=== PATIENT | male | born 1975 | race Caucasian/White ===

== ENCOUNTER 2016-08-13 17:44 | Inpatient (IN) ==
[2016-08-13 18:43] LABS: BASO% 0.1 % (0.0-0.8); EOS# 0.02 X1000 (0.0-0.7); EOS% 0.1 % (0.0-10.0); HEMATOCRIT 42.7 % (42.0-52.0); HEMOGLOBIN 16.1 g/dL (14.0-18.0); IMM GRAN# 0.02 X1000 (0.0-0.04); IMM GRAN% 0.1 % (0.0-0.5); LYMPH# 1.91 X1000 (1.2-3.4); MANUAL DIFF NEEDED? YES; MCH 32.1 PG (27-31); MCHC 37.7 g/dL (33-37); MCV 85.1 FL (81-99); MONO# 0.84 X1000 (0.11-0.59); MONO% 6.2 % (1.7-9.3); MPV 12.1 FL (7.4-10.4); NEUT% 79.5 % (42.2-75.2); PLT 68 X1000 (130-400); RBC 5.02 XMIL (4.7-6.1)
[2016-08-13 18:48] LABS: AGAP 17; ALBUMIN 4.1 g/dL (3.5-5.0); ALKALINE PHOSPHATASE 65 U/L (32-122); AMYLASE 162 U/L (20-200); BUN 36 mg/dL (8-22); CALCIUM 9.2 mg/dL (8.8-10.2); CHLORIDE 81 mmol/L (98-107); COSMO 261; GOT 34 U/L (10-34); GPT 51 U/L (10-44); LIPASE 205 U/L (13-60); POTASSIUM 3.6 mmol/L (3.5-5.1); SODIUM 125 mmol/L (136-145); TCO2 27 mmol/L (25-35); TOTAL BILIRUBIN 1.19 mg/dL (0.20-1.00); TOTAL PROTEIN 7.4 g/dL (6.3-8.3)
[2016-08-13 18:49] LABS: URINE CULTURE NEEDED? NO; URINE MICRO REVIEW NEEDED? NO; URINE SOURCE CLEAN CATCH
[2016-08-13 18:53] LABS: BILIRUBIN URINE SMALL (NEGATIVE); BLOOD URINE TRACE (NEGATIVE); COLOR ORANGE; GLUCOSE URINE NEGATIVE (NEGATIVE); LEUKOCYTES URINE NEGATIVE (NEGATIVE); NITRITE URINE NEGATIVE (NEGATIVE); PROTEIN URINE 70 mg/dL (NEGATIVE); SP GRAVITY URINE 1.034; TURBIDITY URINE CLEAR (CLEAR); UROBILINOGEN URINE 2 mg/dL (NORMAL)
[2016-08-13 18:55] LABS: UR EPITHELIAL CELLS <10 /HPF (<10); URINE BACTERIA NEGATIVE /HPF; URINE RBC <10 /HPF (<10); URINE WBC <10 /HPF (<10)
[2016-08-13] MEDS ORDERED: ZOFRAN IV ONE (18:56)
[2016-08-13] MEDS ORDERED: NS 1,000 ML IV ONE ×2 (18:56→20:38)
[2016-08-13 18:59] LABS: BANDS 1 % (0-1); LYMPHS 16 % (21-51); MONO 5 % (1-9)
[2016-08-13 19:00] LABS: LARGE PLATELETS OCCASIONAL
[2016-08-13] MEDS ORDERED: TORADOL IV ONE (19:11)
--- NOTE | 2016-08-13 19:16 | PROVIDER DOCUMENTATION ---
HPI-Abdominal Pain/GI Problem - General Chief Complaint: N/V/D Stated Complaint: VOMITING,SIDE PAIN,DIARRHEA Time Seen by Provider: 08/13/16 19:11 Source: patient Allergies/Adverse Reactions: Patient Allergies Allergy/AdvReac Type Severity Reaction Status Date / Time No Known Allergies Allergy Verified 08/13/16 18:43 Home Medications: Home Medication List Medication Instructions Recorded Confirmed Last Taken Type Citalopram [Celexa] 40 mg PO DAILY 08/09/12 08/13/16 10/04/14 History Gabapentin [Neurontin] 150 mg PO TID 08/09/12 08/13/16 10/04/14 History LISINOpril [Prinivil] 20 mg PO DAILY 08/09/12 08/13/16 10/04/14 History Trazodone [Desyrel] 50 mg PO QHS 12/18/13 08/13/16 10/04/14 History Hydrocodone/APAP 7.5 mg/325 mg 1 each PO Q6H PRN PRN #10 tablet 05/23/16 Unknown Rx [Montfort-7.5] Alprazolam [Xanax] 1 mg PO BID 08/13/16 08/13/16 Unknown History - History of Present Illness-ABD Nature of Presenting Problems: 41 yom with Abd pain n/v/d. PT has had these symptoms for 7 days. Pain has continued to get worse with out any relief. Pt states, "I have vomited at least 20 times today already." Abdominal Pain Onset Location: reports: [facility] Pain Radiation: reports: RUQ, [facility] Quality of Pain: reports: cramping, sharp Severity in ED: reports: moderate Onset/Duration: reports: 1 week ago Timing: reports: getting worse Activities at Onset: reports: none Exposure to sick contacts?: No Modifying Factors: improves with: nothing Associated Symptoms: reports: diarrhea, nausea, vomiting, weakness Last BM: this evening Dark Stools Present?: reports: none noticed Rectal Bleeding: reports: none # of Diarrhea Episodes: 3 Rectal Pain: reports: none # of Vomiting Episodes: 20 Emesis Description: reports: none Bruising or Bleeding Gums?: No Similar Symptoms Previously?: No Recently seen or treated by another doctor?: No Review of Systems - Adult - REVIEW OF SYSTEMS - ADULT Constitutional: reports: see HPI. denies: no symptoms reported, chills, fever, fatique, night sweats, weight gain, weight loss, other Eyes: reports: no symptoms reported. denies: see HPI, discharge, dry eyes, decreased vision, blurred vision, double vision, eye pain, redness, other Ears, Nose, Mouth & Throat: reports: no symptoms reported. denies: see HPI, ear discharge, ear pain, hearing loss, tinnitus, epistaxis, sinus problem, nose pain, loose teeth, mouth/dental pain, mouth swelling, hoarseness, throat pain, throat swelling, other Cardiovascular: reports: no symptoms reported. denies: see HPI, chest pain, edema, heart murmur, irregular heart rate, orthopnea, palpitations, poor circulation, PND, syncope, other Respiratory: reports: no symptoms reported. denies: see HPI, chronic cough, cough, dyspnea on exertion, excessive sputum production, hemoptysis, pleurisy, shortness of breath, wheezing, other Gastrointestinal: reports: see HPI, abdominal pain, diarrhea, nausea, vomiting Genitourinary: reports: no symptoms reported. denies: see HPI, dysuria, discharge, frequency, flank pain, frequent UTI's, hematuria, hesitency, incontinence, urinary retention, urgency, other Musculoskeletal: reports: no symptoms reported. denies: see HPI, bone pain, back pain, frequent leg cramps, joint pain, joint swelling, muscle aches, muscle weakness, neck pain, other Integumentary: reports: no symptoms reported. denies: see HPI, hives, hair loss , itching, mole changes, nail changes, rash, skin sores/ulcer, skin thickening, other Neurological: reports: no symptoms reported. denies: see HPI, ataxia, dizziness /vertigo, headache/migraines, loss of balance, numbness, paresthesia, seizure, slurred speech, syncope, tremors, other Psychiatric: reports: no symptoms reported. denies: see HPI, anxiety, anti- depressant use, alcohol/drug dependence, depression, emotional problems, insomnia, panic attacks, suicidal thoughts, other All Other Systems: Reviewed and Negative Past History - Adult - PAST MEDICAL HISTORY-ADULT Review of Records: reports: Old Records Reviewed, Nursing Assessment Review, Medications Reviewed, Social history reviewed & non-contributory. Major Childhood Illnesses: reports: denies history Cardiovascular: reports: HTN Respiratory: reports: denies history Gastrointestinal: reports: denies history Obstetrical/Gynecological: reports: denies history Genitourinary: reports: denies history Musculoskeletal: reports: chronic pain Neurological: reports: denies history, degenerative disease Endocrine/Immune: reports: denies history Other Conditions: reports: denies history - PRIOR SURGERIES/PROCEDURES Surgical/Procedure History: reports: tonsillectomy - PRIOR HOSPITALIZATIONS Prior Hospitalizations: reports: none - IMMUNIZATION STATUS Childhood Immunizations: See Nurse Assessment Flu Vaccine: See Nurse Assessment - FAMILY HISTORY Family History: reviewed, not pertinent Physical Exam-General - PHYSICAL EXAM-ADULT Initial Vital Signs Reviewed: Yes - CONSTITUTIONAL General Appearance: appears well, alert, no apparent distress. negative: mild distress, moderate distress, severe distress, cachetic, obese, thin, anxious, lethargic, slow to respond, obtunded, combative, other - EYES Eyes: PERRL/EOMI, pink conjunctivae. negative: fundi clear, no AV nicking, anisocoria, conjuctival exudate, EOM palsy, meningismus, pale conjunctivae, photophobia, sclera injected, scleral icterus, subconjunctival hemorrhage, sunken eyes, other - HEAD, EARS, NOSE, MOUTH & THROAT HENMT: normocephalic/atraumatic, normal ENT inspection, TMs normal, pharynx normal. negative: moist mucous membranes, angioedema, dental decay, hearing deficit, pharyngeal erythema, tonsillar exudate, TM abnormal, TM obscurred by cerumen, frontal tenderness, maxillary tenderness, other - NECK Neck: non-tender, full range of motion, supple, normal inspection. negative: Brudzinski's sign, carotid bruit, C-spine tenderness, limited range of motion, lymphadenopathy, meningismus, trachial deviation, tender lateral, tender midline , thyromegaly, other - RESPIRATORY Respiratory: chest non-tender, lungs clear, normal breath sounds, no pleuratic chest pain, no respiratory distress, no accessory muscle use. negative: respiratory distress, decreased breath sounds, accessory muscle use, crackles, rales, rhonchi, stridor, wheezing, dull on percussion, prolonged expiration, pain on inspiration, plerual rub, retractions, splinting, decreased rate, increased rate, crepitus, other - CARDIOVASCULAR Cardiovascular: normal peripheral pulses, no edema, no gallop, no JVD, no murmur , tachycardia. negative: regular rate, rhythm, JVD, bradycardia, diastolic murmur, systolic murmur, gallop/S3, gallop/S4, extra beats, friction rub, irregularly irregular, PMI displaced laterally, other - GASTROINTESTINAL (ABDOMEN) Abdominal Exam: soft, no organomegaly, no pulsatile mass, abnormal bowel sounds , tenderness. negative: normal bowel sounds, non tender, abdominal bruit, distended, guarding, rigid, rebound, hernia, mass, hepatomegaly, spleenomegaly, McBurney's point tenderness, Gregg's sign, obturator sign, prominent aortic pulsations, psoas, Rovsing's sign, other - GENITOURINARY Male Genitalia: deferred Rectal Exam: deferred Hemoccult Exam: deferred - LYMPHATIC Lymphatic: no adenopathy - MUSCULOSKELETAL Back Exam: normal inspection, no CVA tenderness, no vertebral tenderness. negative: CVA tenderness, decreased range of motion, ecchymosis, kyphosis, lordosis, muscle spasm, scoliosis, swelling, vertebral tenderness, other Extremity: normal range of motion, non-tender, normal gait, normal inspection, no pedal edema, no calf tenderness, normal capillary refill. negative: pelvis stable, abnormal NV exam, calf tenderness, deformity, erythema, inflammation, joint effusion, pulse deficit, pedal edema, slow capillary refill, swelling, tenderness, other - SKIN Integumentary: normal color, warm/dry - NEUROLOGIC Neurologic: grossly normal, no motor/sensory deficits - PSYCHIATRIC Psych/Mental Status: normal mood/affect, normal thought content, normal thought process, oriented x 3 Progress - PLAN OF CARE/RESULTS Progress/Plan/Lab Results: Laboratory Tests 08/13/16 08/13/16 08/13/16 18:00 18:00 18:45 WBC 13.64 H RBC 5.02 Hgb 16.1 Hct 42.7 MCV 85.1 MCH 32.1 H MCHC 37.7 H RDW Std Deviation 11.7 Plt Count 68 L MPV 12.1 H Immature Gran % (Auto) 0.1 Neut % (Auto) 79.5 H Lymph % (Auto) 14.[address] [place] % (Auto) 6.2 Eos % (Auto) 0.1 Baso % (Auto) 0.1 Immature Gran # (Auto) 0.02 Neut # (Auto) 10.83 H Lymph # (Auto) 1.91 [place] # (Auto) 0.84 H Eos # (Auto) 0.02 Baso # (Auto) 0.02 Segmented Neutrophils 74 Band Neutrophils 1 Lymphocytes 16 L Monocytes 5 Atypical Lymphocytes 4.0 Large Platelets OCCASIONAL Stomatocytes Sodium 125 L Potassium 3.6 Chloride 81 L Carbon Dioxide 27 Anion Gap 17 BUN 36 H Creatinine 1.0 Estimated GFR/1.73 m2 > 60 BUN/Creatinine Ratio 36 Glucose 113 H Calculated Osmolality 261 Calcium 9.2 Total Bilirubin 1.19 H AST 34 ALT 51 H Alkaline Phosphatase 65 Total Protein 7.4 Albumin 4.1 Globulin 3.3 Albumin/Globulin Ratio 1.2 Amylase 162 Lipase 205 H Urine Source CLEAN CATCH Urine Color ORANGE Urine Turbidity CLEAR Urine pH 6.0 Ur Specific [place] 1.034 Urine Protein 70 A Ur Glucose (Stick) NEGATIVE Ur Ketones (Stick) TRACE A Urine Blood TRACE A Urine Nitrite NEGATIVE Urine Bilirubin SMALL A Urobilinogen Dipstick 2 A Urine Leukocytes NEGATIVE Urine WBC (Auto) <10 Urine RBC (Auto) <10 U Epithel Cells (Auto) <10 Urine Bacteria (Auto) NEGATIVE Orders Category Date Time Status Saline Loc DIRECTED Care 08/13/16 18:03 Active NPO Diet 08/13/16 18:[address] ABD/PELVIS W/ IV CONT ONLY [CT] Stat Exams 08/13/16 19:01 Taken AMYLASE [CHEM] Stat Lab 08/13/16 18:00 Completed CBC WITH ELECTRONIC DIFF [HEME] Stat Lab 08/13/16 18:00 Completed COMPREHENSIVE METABOLIC PANEL [CHEM] Stat Lab 08/13/16 18:00 Completed LIPASE [CHEM] Stat Lab 08/13/16 18:00 Completed URINALYSIS W/POSS RFLX CULT [URINALYSIS] Stat Lab 08/13/16 18:45 Completed 0.9% Sodium Chloride Inj [Ns] 1,000 ml Med 08/13/16 18:56 Discontinued IV 999 mls/hr 0.9% Sodium Chloride Inj [Ns] 1,000 ml Med 08/13/16 20:38 Active IV 999 mls/hr Ketorolac [Toradol] Med 08/13/16 19:11 Discontinued 30 mg IV NOW ONE Ondansetron [Zofran] Med 08/13/16 18:56 Discontinued 4 mg IV NOW ONE Vital Signs Temp Pulse Resp BP Pulse Ox 08/13/16 19:42 95 H 17 139/110 98 08/13/16 17:56 97.4 F L 120 H 16 121/98 95 No Known Allergies Allergy (Verified 08/13/16 18:43) Citalopram [Celexa] 40 mg PO DAILY 08/09/12 Gabapentin [Neurontin] 150 mg PO TID 08/09/12 LISINOpril [Prinivil] 20 mg PO DAILY 08/09/12 Trazodone [Desyrel] 50 mg PO QHS 12/18/13 Hydrocodone/APAP 7.5 mg/325 mg [Montfort-7.5] 1 each PO Q6H PRN PRN #10 tablet Alprazolam [Xanax] 1 mg PO BID 08/13/16 Dietary Diet NPO Start Sophy Aug 13 1802 I&O 08/12/16 08/13/16 08/14/16 06:59 06:59 06:59 Output Total 15 Balance -15 Laboratory 08/13/16 08/13/16 08/13/16 18:45 18:00 18:00 WBC 13.64 H RBC 5.02 Hgb 16.1 Hct 42.7 MCV 85.1 MCH 32.1 H MCHC 37.7 H RDW Std Deviation 11.7 Plt Count 68 L MPV 12.1 H Immature Gran % (Auto) 0.1 Neut % (Auto) 79.5 H Lymph % (Auto) 14.[address] [place] % (Auto) 6.2 Eos % (Auto) 0.1 Baso % (Auto) 0.1 Immature Gran # (Auto) 0.02 Neut # (Auto) 10.83 H Lymph # (Auto) 1.91 [place] # (Auto) 0.84 H Eos # (Auto) 0.02 Baso # (Auto) 0.02 Segmented Neutrophils 74 Band Neutrophils 1 Lymphocytes 16 L Monocytes 5 Atypical Lymphocytes 4.0 Large Platelets OCCASIONAL Stomatocytes Sodium 125 L Potassium 3.6 Chloride 81 L Carbon Dioxide 27 Anion Gap 17 BUN 36 H Creatinine 1.0 Estimated GFR/1.73 m2 > 60 BUN/Creatinine Ratio 36 Glucose 113 H Calculated Osmolality 261 Calcium 9.2 Total Bilirubin 1.19 H AST 34 ALT 51 H Alkaline Phosphatase 65 Total Protein 7.4 Albumin 4.1 Globulin 3.3 Albumin/Globulin Ratio 1.2 Amylase 162 Lipase 205 H Urine Source CLEAN CATCH Urine Color ORANGE Urine Turbidity CLEAR Urine pH 6.0 Ur Specific [place] 1.034 Urine Protein 70 A Ur Glucose (Stick) NEGATIVE Ur Ketones (Stick) TRACE A Urine Blood TRACE A Urine Nitrite NEGATIVE Urine Bilirubin SMALL A Urobilinogen Dipstick 2 A Urine Leukocytes NEGATIVE Urine WBC (Auto) <10 Urine RBC (Auto) <10 U Epithel Cells (Auto) <10 Urine Bacteria (Auto) NEGATIVE - CONSULTS/PCP/HOSPITALIST Notification #1 *Consult/PCP/Hospitalist*: akinsoto Time Discussed: 20:40 Reason/Comments: Acute Pancreatitis Consult Disposition: Admit Departure - Departure Time of Disposition Order: 20:39 DIAGNOSIS: Pancreatitis Qualifiers: Chronicity: acute Pancreatitis type: unspecified pancreatitis type Acute pancreatitis complication: unspecified Qualified Code(s): K85.90 - Acute pancreatitis without necrosis or infection, unspecified Disposition: ADMITTED INPATIENT 09 Certified Medical Emergency: Emergent Condition: Stable Attestation - Physician/ GAYLE Attestation Patient care was provided by Advanced Practice Provider:: Yes Advanced Practice Provider:: Chance Good Advanced Practice Provider documentation review:: The Mid-level provider documentation, treatment plan and medical decision making was reviewed by the physician who agrees with all treatment and medical decision making by the [facility]. Physician Attestation - Physician Attestation I, the provider, attest to the following statement:: Chance Good Physician documentation Attestation:: This documentation recorded by the scribe accurately reflects the service I personally performed and the decisions made by me.
[2016-08-13] MEDS ORDERED: NICODERM PATCH TD ONE (20:41)
--- NOTE | 2016-08-13 21:45 | Diag Imaging Result Document ---
PROCEDURE NAME: CT ABD/PELVIS W/ IV CONT ONLY - 08/13/2016 STUDY: CT abdomen and pelvis with intravenous contrast. PROTOCOL: Dose reduction protocol. COMPARISON: Compared to 10/06/2014. The pancreas appears edematous with questionable minimal adjacent inflammatory changes about the body. No pancreatic calcifications or pseudocysts. Normal spleen and adrenal glands. Normal gallbladder. No focal hepatic abnormality. Normal enhancement of the kidneys. No hydronephrosis. Normal aorta. No bowel obstruction. Normal appendix. No abscess. There is a small to moderate amount of free fluid in the pelvis and in the right paracolic gutter. No free air. The urinary bladder is only mildly distended. The prostate is not enlarged. IMPRESSION: 1. Findings suspicious for pancreatitis. 2. Free fluid within the pelvis and in the right paracolic gutter. 3. No bowel obstruction. No inflammation about the appendix. A preliminary report was given at 8:25 p.m.
[2016-08-13] MEDS ORDERED: THIAMINE IM ONE (21:53)
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
[2016-08-13 23:01] LABS: UR AMPHETAMINES QUAL NONE DETECTED (NONE DETECT); UR BARBITUATES QUAL NONE DETECTED (NONE DETECT); UR BENZODIAZEPIN QUAL PRESUMPTIVE POSITIVE (NONE DETECT); UR CANNABINOIDS QUAL NONE DETECTED (NONE DETECT); UR COCAINE QUAL NONE DETECTED (NONE DETECT); UR METHADONE QUAL NONE DETECTED (NONE DETECT); UR OPIATES QUAL PRESUMPTIVE POSITIVE (NONE DETECT); UR OXYCODONE QUAL NONE DETECTED (NONE DETECT); UR PCP QUAL NONE DETECTED (NONE DETECT)
[2016-08-13] MEDS ORDERED: ZOFRAN IV PRN (23:21)
[2016-08-13] MEDS ORDERED: ATIVAN IV PRN (23:21)
[2016-08-13] MEDS ORDERED: TYLENOL PO PRN (23:21)
[2016-08-14] MEDS: XANAX PO SCH ×3 (00:05→20:13)
[2016-08-14] MEDS: NS 1,000 ML IV SCH ×3 (00:05→14:01)
[2016-08-14] MEDS: LOVENOX SUBQ SCH (00:05)
[2016-08-14] MEDS: MORPHINE IV PRN ×4 (00:06→20:13)
[2016-08-14 07:05] LABS: MANUAL DIFF NEEDED? NO
[2016-08-14 07:20] LABS: BASO% 0.2 % (0.0-0.8); EOS# 0.08 X1000 (0.0-0.7); EOS% 0.9 % (0.0-10.0); HEMATOCRIT 34.5 % (42.0-52.0); HEMOGLOBIN 12.3 g/dL (14.0-18.0); IMM GRAN# 0.02 X1000 (0.0-0.04); IMM GRAN% 0.2 % (0.0-0.5); LYMPH# 2.06 X1000 (1.2-3.4); LYMPH% 23.4 % (20.5-51.1); MCH 31.1 PG (27-31); MCHC 35.7 g/dL (33-37); MCV 87.3 FL (81-99); MONO# 0.56 X1000 (0.11-0.59); MONO% 6.4 % (1.7-9.3); MPV 12.3 FL (7.4-10.4); NEUT% 68.9 % (42.2-75.2); PLT 49 X1000 (130-400); RBC 3.95 XMIL (4.7-6.1)
[2016-08-14 08:15] LABS: AGAP 9; ALKALINE PHOSPHATASE 47 U/L (32-122); AMYLASE 99 U/L (20-200); BUN 26 mg/dL (8-22); CHLORIDE 93 mmol/L (98-107); COSMO 266; GOT 23 U/L (10-34); GPT 30 U/L (10-44); HDL 27 mg/dL (35-55); LDL 29 mg/dL; LIPASE 162 U/L (13-60); SODIUM 131 mmol/L (136-145); TCO2 29 mmol/L (25-35); TOTAL BILIRUBIN 0.98 mg/dL (0.20-1.00); TOTAL PROTEIN 5.6 g/dL (6.3-8.3); TRIGLYCERIDES 115 mg/dL (39-160); VLDL 23 mg/dL
[2016-08-14 08:29] LABS: CALCIUM 7.7 mg/dL (8.8-10.2)
--- NOTE | 2016-08-14 08:51 | Diag Imaging Result Document ---
PROCEDURE NAME: US ABDOMEN-COMPLETE - 08/14/2016 COMPLETE ABDOMINAL ULTRASOUND: COMPARISON: None available. FINDINGS: The gallbladder appears normal with no stones, wall thickening, or pericholecystic fluid. The common bile duct is normal in diameter. Sonographic Gregg's sign was reported to be negative. The pancreatic tail was obscured by bowel gas. The remainder of the pancreas is grossly unremarkable. The aorta and IVC are partially obscured. The visualized portions are unremarkable. The liver, spleen, and kidneys are grossly unremarkable. IMPRESSION: Essentially unremarkable abdominal ultrasound.
[2016-08-14] MEDS: NEURONTIN PO SCH ×3 (09:27→18:00)
--- NOTE | 2016-08-14 16:50 | PROGRESS NOTE ---
DATE: 08/14/2016 SUBJECTIVE: Today Mr. Beckwith referred to be doing a whole lot better and he was actually asking to be fed. OBJECTIVE: Vital signs: Blood pressure is 142/83, pulse of 77, respirations 18 , temperature is 97.9 degrees. General: Mr. Beckwith, 41-year-old male. He was in bed. The mother was actually there by the bedside. Was not in any distress. HEENT: Mucosa is pink and moist. Anicteric. Acyanotic. Neck: Supple. Chest: Good air entry bilaterally. No crepitations. Abdomen: Soft. Mildly tender in the periumbilical area. Extremities: No pedal edema. 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 No focal neurological deficit. LABORATORY DATA: WBC is 8.79, hemoglobin 12.3, platelet count of 49,000. Chemistry reviewed. Sodium is 131, potassium 3.0, chloride 93, lipase is down to 169. A CT scan report yesterday did show finding suspicious for pancreatitis, free fluid in the pelvis and in the right paracolic gutter. An ultrasound of the abdomen shows essentially unremarkable abdominal ultrasound. ASSESSMENT: 1. Acute pancreatitis likely due to alcohol induced. 2. Alcohol abuse. Patient drinks about 2 of the 24 ounces of the large beers on daily basis and this is going on for very, very long time and according to him, he has actually cut down. He used to be drinking a whole lot more. 3. Thrombocytopenia likely related to alcohol abuse. 4. Dehydration. GENERAL PLAN: 1. We are going to continue with the aggressive hydration. Will start the patient on GI soft diet. 2. I will do a CRP level for tomorrow to see what is the inflammatory level. 3. I will also do an IgG subclass because according to them, the mother also has pancreatitis issue and ulcerative colitis and her pancreatitis was due to autoimmune process so will do that to make sure there is no any autoimmune process. [facility]
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
[2016-08-15] MEDS: LOVENOX SUBQ SCH (00:15)
[2016-08-15] MEDS: MORPHINE IV PRN ×2 (00:16→04:30)
[2016-08-15] MEDS: NICODERM PATCH TD SCH ×2 (02:45→08:23)
[2016-08-15 06:39] LABS: BASO% 0.1 % (0.0-0.8); EOS% 1.3 % (0.0-10.0); HEMATOCRIT 35.5 % (42.0-52.0); LYMPH% 28.1 % (20.5-51.1); MANUAL DIFF NEEDED? NO; MCH 31.8 PG (27-31); MCHC 36.6 g/dL (33-37); MCV 86.8 FL (81-99); MONO# 0.58 X1000 (0.11-0.59); MONO% 7.8 % (1.7-9.3); MPV 11.7 FL (7.4-10.4); NEUT% 62.7 % (42.2-75.2); PLT 59 X1000 (130-400); RBC 4.09 XMIL (4.7-6.1)
[2016-08-15 07:11] LABS: AGAP 8; BUN 12 mg/dL (8-22); CALCIUM 8.9 mg/dL (8.8-10.2); CHLORIDE 92 mmol/L (98-107); COSMO 263; POTASSIUM 3.6 mmol/L (3.5-5.1); SODIUM 131 mmol/L (136-145); TCO2 31 mmol/L (25-35)
[2016-08-15] MEDS: NEURONTIN PO SCH ×2 (08:23→12:13)
[2016-08-15] MEDS: XANAX PO SCH (08:31)
[2016-08-15 09:10] VITALS: BP 149/93
[2016-08-15] MEDS ORDERED: NORCO-5 PO PRN (11:59)
[2016-08-16] MEDS ORDERED: PRILOSEC ORAL SUSPENSION PO SCH (07:00)
--- NOTE | 2016-08-16 07:00 | DISCHARGE SUMMARY ---
ADMISSION DATE: 08/13/2016 DISCHARGE DATE: 08/15/2016 DISPOSITION: Home. FOLLOWUP: 1. Dr. Goodman. 2. Dr. Rosa. CONSULTATIONS DURING THIS ADMISSION: GI was consulted. Patient was seen by Dr. Rosa. INVASIVE PROCEDURES DONE: None. IMAGING STUDIES OF SIGNIFICANCE: 1. An abdomen and pelvis CT scan was done which shows findings suspicious for pancreatitis. 2. An abdominal ultrasound was done which showed essentially unremarkable abdominal ultrasound. ADMISSION DIAGNOSES: 1. Acute pancreatitis. 2. Hypotonic, hypovolemic hyponatremia. 3. History of hypertension. 4. Alcohol use. 5. Thrombocytopenia. DISCHARGE DIAGNOSES: 1. Acute alcohol-induced pancreatitis. 2. Alcohol abuse. 3. Thrombocytopenia, likely due to alcohol abuse and malnutrition. 4. Dehydration, improved. DISCHARGE MEDICATIONS: 1. [place] 7.5 mg q.6 p.r.n. 2. Omeprazole 20 mg daily. 3. Lisinopril 20 mg daily. 4. Gabapentin 150 two times per day. 5. Trazodone 50 mg at bedtime. PRESENTING COMPLAINT: Abdominal pain, nausea, and vomiting. HISTORY OF PRESENTING COMPLAINT: Mr. Beckwith is a 41-year-old, male who presented to the emergency department because of abdominal pain for about a week. Was investigated. Found to have elevated lipase and a CT scan of the abdomen did show findings suspicious for acute pancreatitis. Patient was admitted for further medical care. HOSPITAL COURSE: Patient did pretty well during the hospital course. He was to their in a regular fashion. NPO initially. A lot of IV fluids and adequate pain control. Clinically, he improved, and we advanced his diet and he tolerated it very well. Patient was seen by GI who pretty much agreed with the patient's care. Today, patient is doing okay. Completely asymptomatic and is eating. We will therefore discharge him and he will follow up with his PCP and with GI. Of note, the patient's mother said she had also autoimmune pancreatitis and ulcerative colitis. We therefore ordered IgG subclass and also SUNIL on this patient despite his strong history of alcohol. We do not want to miss any possible confounding autoimmune process. That test was pending at the time of patient's discharge. We have advised him to follow up with Dr. Rosa so that he can review this result with her. At the time of discharge, patient's vitals, blood pressure is 149/93, pulse of 73, respirations 20, temperature is 98.5 degrees. Physical exam is completely unremarkable. All his labs have also been reviewed. There is nothing very alarming except for his platelet count which has been low and we think it is related to his alcohol and malnutrition. He has been advised to follow up with his PCP and repeat this in about a month. Disposition is home. ACTIVITY: As tolerated. Time spent for discharge was 36 minutes.
[2016-08-18 13:39] LABS: HEPATITIS PROFILE ACUTE SEE COMMENTS (())
== END 2016-08-15 14:18 | disposition home or self-care (01) | DRG 439 ==
LOC: ED 17:44 → EDIPHOLD 21:18 → 4N 23:11
PROVIDERS: ATTEND Internal Medicine
DX: K85.20 Alcohol induced acute pancreatitis without necrosis or infection (principal); E87.1 Hypo-osmolality and hyponatremia; E44.1 Mild protein-calorie malnutrition; K75.9 Inflammatory liver disease, unspecified; D69.59 Other secondary thrombocytopenia; F10.188 Alcohol abuse with other alcohol-induced disorder; E86.0 Dehydration; E87.6 Hypokalemia; Z68.20 Body mass index [BMI] 20.0-20.9, adult; G89.29 Other chronic pain; I10 Essential (primary) hypertension; F41.9 Anxiety disorder, unspecified; F17.210 Nicotine dependence, cigarettes, uncomplicated; Z82.49 Family history of ischemic heart disease and other diseases of the circulatory system; Z79.899 Other long term (current) drug therapy
CPT/HCPCS: 74177; 76700; 80048; 80053; 80061; 80074; 81001; 82150; 82784; 82787; 83690; 83935; 84300; 84550; 85025; 86038; 86140; 96372; 96374; G0480; J1650; J1885; J2060; J2270; J2405; J3411; J7030; Q9967; 80324; 80345; 80346; 80349; 80353; 80358; 80361; 80365; 83992